=== PATIENT | female | born 1975 | race Caucasian/White ===

== ENCOUNTER 2025-02-01 19:59 | Inpatient (IN) | payer BC ==
[2025-02-01] MEDS ORDERED: MAG HYDROX/AL HYDROX/SIMETH 355 ML BOTTLE PO PRN (21:02)
[2025-02-01] MEDS ORDERED: MAGNESIUM HYDROXIDE 2,400 MG/30 ML CUP PO PRN (21:02)
[2025-02-01] MEDS ORDERED: ACETAMINOPHEN TAB 325 MG TAB PO PRN (21:02)
[2025-02-01] MEDS ORDERED: IBUPROFEN 600 MG TAB PO PRN (21:02)
[2025-02-01] MEDS ORDERED: OLANZapine 10 MG VIAL IM PRN (21:04)
[2025-02-01] MEDS ORDERED: hydrOXYzine HCL 50 MG/ML 1 ML VIAL IM PRN (21:04)
[2025-02-02] MEDS: NICOTINE 14MG/24HR PATCH TRANSDERM SCH (00:09)
[2025-02-02] MEDS: OLANZapine 5 MG TAB PO PRN (00:09)
[2025-02-02] MEDS: amLODIPine 10 MG TAB PO SCH (08:08)
[2025-02-02] MEDS: ASCORBIC ACID 500 MG TAB PO SCH (08:08)
[2025-02-02] MEDS: LOSARTAN 25 MG TAB PO SCH (08:08)
[2025-02-02] MEDS: SHAROBEL PO SCH (08:12)
--- NOTE | 2025-02-02 12:15 | P.HP ---
Psychiatric H&P - . H&P Date: 02/02/25 History & Physical: Allergies Allergy/AdvReac Type Severity Reaction Status Date / Time iodine Allergy Unknown Verified 02/01/25 20:52 Vital Signs Temp 97.7 F 02/02/25 08:09 Pulse 91 02/02/25 08:09 Resp 18 02/02/25 08:09 BP 121/82 02/02/25 08:09 Pulse Ox 96 02/02/25 08:09 FiO2 Intake & Output 02/01/25 02/02/25 02/02/25 18:59 06:59 18:59 Weight 57.1 kg 02/02/25 12:09 IDENTIFYING DATA: Patient is a 49-year-old female, employed and living with CHIEF COMPLAINT: Suicide attempt via cutting, SI HPI: Patient presented to the hospital with suicidal ideations with a plan. Per EPS, "Pt was pet/cert. Pt has racing thoughts about killing herself. Pt has SI and increased depression. Insomnia, anxiety, hypoverbal, and impaired concentration. Pt cut Left wrist with razor, requiring 5 sutures. Pt was given a TDAP. No special wound care or antibiotics ordered per Michael. Sutures can be removed within 7-10 days per HIEN Boucher. Pt is reported to be cooperative. PO Ativan given for anxiety. No restraints. Able to complete all ADLs. Covid neg, UDS neg, UA -WNL, Sodium 133, reviewed with , repeat CMP in AM. HCG neg. ETOH <10. No reported etoh or substance hx. Medical: HTN. VSS." Patient seen and evaluated on the unit and was agreeable with speaking to technical publications writer in office. She states for the past 4 months she has been having difficulties with sleep in addition to racing though ts and severe anxiety that impacts her sleep. She admits to having an affair at her job with her boss, stating that her coworkers has been harassing her and bullying her ever since, causing her to step away from her job. She does not feel as though she will return to work because of this and states that her is aware and is still willing to work on their relationship together. She admits to cutting her left wrist and immediately contacted her who brought her into the hospital. She has tried several sleep agents previously including doxepin, Remeron, Seroquel however has not felt relief in her insomnia. In addition to poor sleep she admits to poor concentration, low energy, anhedonia. She continues to express suicidal ideations with a plan to cut. Patient denies any homicidal ideations intent or plan. At this time patient denies any auditory or visual hallucinations. Patient admits to using alcohol socially, occasional cannabis and vaping daily. PAST PSYCHIATRIC HISTORY: Patient has a history of anxiety. She states she has tried doxepin, Remeron and Seroquel. Patient denies any previous psychiatric hospitalizations. Patient has seen a psychiatrist before however none recently. Patient denies any history of suicide attempts in the past. PMH: as per ER note ALLERGIES: as per EMR SUBSTANCE USE HISTORY: As per HPI FAMILY PSYCHIATRIC/SUBSTANCE USE HISTORY: Patient states her sister previously abused heroin SOCIAL HISTORY: Patient is and has no children. She completed 10th grade and is currently employed however will be leaving her job. MENTAL STATUS EXAM: General Appearance: Patient appears to be stated age is alert, directable, and attempts to cooperate. Patient appears to have poor hygiene and grooming. She has stitches on her superficial cuts on her left wrist Behavior: Patient is seated without any agitated behavior. She is tearful Speech: Patient's speech is fluent and nonpressured. Mood/Affect: Patient reports their mood is depressed, affect is congruent and constricted. Suicidality/Homicidality: Patient denies having any homicidal ideation intent or plan. She reports suicidal ideations with a plan to cut Perceptions: Patient denies any visual hallucinations and denies any auditory hallucinations Though content/process: There is no evidence of any delusional thought content and thought process is linear and logical. Memory and concentration: AOX3, grossly intact for the purposes of this session. Can spell "WORLD" backwards Judgment and insight: Poor STRENGTHS/WEAKNESSES: strength is that patient is resilient and has support. Weakness is that patient has poor judgment and is impulsive INTELLECT: Average IMPRESSIONS: Unspecified mood disorder Rule out bipolar disorder, current episode depressed versus major depressive disorder with anxious distress Nicotine dependence PLAN: -Patient is admitted under voluntary status to MHU for stabilization of psychiatric symptoms and safety. Patient has signed adult voluntary form and and is placed in patient's chart. -Medications : Start Zyprexa Zydis 10 mg at bedtime for insomnia/racing thoughts/mood stabilization, Prozac 20 mg at bedtime for depression/anxiety - Zyprexa and hydroxyzine PRN for agitation/aggression -Patient was counselled on substance abuse and desired to cut back on use -Patient was informed of the risks, benefits and side effects of the medication and patient verbally consented to taking the medications. Patient signed med consent form and was placed in chart. Patient offered and accepted patient education sheet for psychotropic medications. -Internal Medicine consult to perform medical evaluation and physical. -NRT -nicotine patch -SW on board for discharge planning. Encourage patient to participate in groups to work on coping skills.
[2025-02-02 12:27] LABS: Basophils # (A) 0.06 10*3/uL (0.00-0.10); Basophils % (A) 0.8 %; Eosinophils # (A) 0.09 10*3/uL (0.04-0.35); Eosinophils % (A) 1.2 %; HCT 40.6 % (37.2-46.3); HGB 13.7 g/dL (12.0-15.0); Lymphocytes # (A) 1.76 10*3/uL (0.90-5.00); Lymphocytes % (A) 23.6 %; MCH 34.5 pg (27.0-32.0); MCHC 33.7 g/dL (32.0-37.0); MCV 102.3 fL (80.0-97.0); Monocytes # (A) 0.87 10*3/uL (0.20-1.00); Monocytes % (A) 11.6 %; Neutrophils # (A) 4.68 10*3/uL (1.80-7.70); Neutrophils % (A) 62.7 %; Platelet Count 264 10*3/uL (140-440); RBC 3.97 10*6/uL (4.10-5.20); RDW 11.5 % (11.5-14.5); WBC 7.47 10*3/uL (4.50-10.00)
[2025-02-02] MEDS: OLANZapine ODT 10 MG TAB PO SCH (20:18)
[2025-02-02] MEDS: FLUoxetine HCL 20 MG CAP PO SCH (20:18)
[2025-02-03] MEDS: SHAROBEL PO SCH (09:54)
--- NOTE | 2025-02-03 12:20 | P.PN ---
Progress Note - Text Progress Note Date: 02/03/25 Interval history: Patient was seen wandering the hallways and was directable and agreeable to s peak with chief writer. She reports experiencing "crazy dreams" overnight however did admit to having her nicotine patch on and she was encouraged to remove this prior to bedtime. She states her will be bringing her OCP and. She reports feeling groggy today, likely related to the medication. At this time patient denies any suicidal or homicidal ideations intent or plan. Denies any auditory or visual hallucinations. Patient has been compliant with meds. Mental status exam: General Appearance: Patient appears to be stated age is alert, directable, and cooperative. Behavior: No agitated behavior. Patient is calm and directable she is less tearful today Speech: Patient's speech is fluent and nonpressured. Mood/Affect: Mood is improving mildly, affect is congruent and constricted. Suicidality/Homicidality: Patient denies having any suicidal or homicidal ideation intent or plan. Perceptions: Patient denies any auditory or visual hallucinations. Though content/process: There is no evidence of any delusional thought content and thought process is linear. Memory and concentration: AOX3, grossly intact for the purposes of this session Judgment and insight: improving mildly Assessment/Plan: Continue with current diagnosis. Patient continues to meet criteria for inpatient psychiatric admission for symptom stabilization and safety. Patient will be maintained on current psychotropic medication regimen. Monitor for medication compliance and for any psychotropic medication side effects. Will continue to monitor ongoing response to treatment. Encouraged participation in milieu.
[2025-02-03] MEDS: LOSARTAN 25 MG TAB PO SCH (20:09)
[2025-02-04] MEDS: hydrOXYzine pamoate 25 MG CAP PO PRN (14:37)
--- NOTE | 2025-02-04 18:48 | P.PN ---
Progress Note - Text Progress Note Date: 02/04/25 Interval history: Patient was seen sitting in the TV lounge with peers and was directable and ag reeable to speak with television script writer. She reports her mood is "not bad", "5/10" with 10 being the worst mood. At this time patient denies any suicidal or homicidal ideation, intent or plan. Denies any auditory or visual hallucinations. Patient has been compliant with meds and denies medication side effects. No PRNs required for agitation. Mental status exam: General Appearance: Patient appears to be stated age, tall slender adult female, dressed in casual attire, adequate hygiene Behavior: No agitated behavior. Patient is calm and directable. Speech: Patient's speech is fluent and non-pressured. Mood/Affect: Mood is improving mildly, affect is congruent and constricted. Suicidality/Homicidality: Patient denies having any suicidal or homicidal ideation intent or plan. Perceptions: Patient denies any auditory or visual hallucinations. Though content/process: There is no evidence of any delusional thought content and thought process is linear. Memory and concentration: AOX3, grossly intact for the purposes of this session Judgment and insight: improving mildly Assessment/Plan: Continue with current diagnosis. Patient continues to meet criteria for inpatient psychiatric admission for symptom stabilization and safety. Patient will be maintained on current psychotropic medication regimen. Monitor for medication compliance and for any psychotropic medication side effects. Will continue to monitor ongoing response to treatment. Encouraged participation in milieu.
--- NOTE | 2025-02-04 23:57 | P.MDCNMH ---
History of Present Illness H&P Date: 02/04/25 49 year old female with hypertension patient is here for psychosis for mental health evaluation , she had self inflicted left wrist cuts s/p sutures. she currently is feeling fine she denies any fever, chills, cough, sore throat, chest pain , trouble breathing , nausea , vomiting, abd pain , changes in urinary or bowel habits. she admits to vaping , denies illicit drugs or alcohol review of systems Pertinent positives as noted in HPI. All other systems were reviewed and are negative on exam Constitutional: No acute distress, conversant, pleasant Eyes: Anicteric sclerae, moist conjunctiva, Pupils equal round reactive to light Neck: Supple, no masses, or JVD No carotid bruits No thyromegaly Lungs: Clear to auscultation Clear to percussion Normal respiratory effort, no accessory muscle use Cardiovascular: Heart regular in rate and rhythm, No murmurs, gallops, or rubs No peripheral edema Abdominal: Soft Nontender, no guarding, rebound or rigidity Abdomen moving with respiration Normoactive bowel sounds extremities No clubbing Pedal pulses intact and symmetrical Radial pulses intact and symmetrical No calf tenderness Psychiatric: Alert and oriented to person, place and time Neuro Muscles Strength 5/5 in all 4 extremities Sensation to light touch grossly present throughout Cranial nerves II-XII grossly intact Past Medical History Past Medical History: Hypertension History of Any Multi-Drug Resistant Organisms: None Reported Past Surgical History: No Surgical Hx Reported Past Anesthesia/Blood Transfusion Reactions: No Reported Reaction Smoking Status: Vaper - Past Family History Father Additional Family Medical History / Comment(s): Paternal Hx of Heart Disease Mother Additional Family Medical History / Comment(s): Pt reports Maternal Grandmother Hx of Colon Cancer Medications and Allergies Allergies Allergy/AdvReac Type Severity Reaction Status Date / Time iodine Allergy Unknown Verified 02/01/25 20:52 Physical Exam Vitals: Vital Signs Temp Pulse Resp BP Pulse Ox 02/04/25 21:32 98.1 F 84 16 114/77 98 02/04/25 08:39 98 F 94 108/74 99 Cranial Nerve Examination - Cranial Nerves Cranial Nerve II- Optic: Intact Cranial Nerve III- Oculomotor: Intact Cranial Nerve IV- Trochlear: Intact Cranial Nerve V- Trigeminal: Intact Cranial Nerve - Abducens: Intact Cranial Nerve VII- Facial: Intact Cranial Nerve VIII- Auditory: Intact Cranial Nerve IX- Glossopharyngeal: Intact Cranial Nerve X- Vagus: Intact Cranial Nerve XI- Accessory: Intact Cranial Nerve XII- Hypoglossal: Intact Results CBC & Chem 7: 02/02/25 11:30 Assessment and Plan Assessment: hypertension , controlled resume amlodipine and losartan acute psychosis 'management per psych left wrist cuts , remove sutures after 7 days blood work limits to CBC , A1c and TSH , all unremarkable thank you for this consultation
[2025-02-05] MEDS: NICOTINE GUM (POLACRILEX) 2 MG GUM BUCCAL PRN (10:10)
[2025-02-05] MEDS: FLUoxetine HCL 20 MG CAP PO STA (12:16)
[2025-02-05] MEDS: busPIRone HCl 5 MG TAB PO SCH (12:16)
--- NOTE | 2025-02-05 13:00 | P.PN ---
Progress Note - Text Progress Note Date: 02/05/25 Interval HIstory: Patient was seen today sitting in the lounge, agreeable to speak to field underwriter in the office. Patient claims that she is still dealing with severe anxiety, claims that she feels that her mood is improving mildly however still a bit depressed. Endorsing some anhedonia. Claims that she is hesitant about taking these medications however is willing to continue on this treatment. She states that she was able to sleep fairly last night has been feeling a bit groggy in the morning. We spoke about different medication options that we can do, patient was agreeable to try BuSpar for anxiety. Has been going to some groups, fairly focused on her symptoms at this time. Claims that she has been showering, has been eating well. At this time she is denying any suicidal homicidal ideations intent or plan. Not reporting any other side effects. MENTAL STATUS EXAM: General Appearance: Patient appears to be stated age is alert, directable, and attempts to cooperate. Patient appears to have improving hygiene and grooming. She has stitches on her superficial cuts on her left wrist Behavior: Patient is seated without any agitated behavior. Attempts to cooperate. Appears anxious Speech: Patient's speech is fluent and nonpressured. Hesitant at times Mood/Affect: Patient reports their mood is depression improving, still having anxiety significantly, affect is congruent and constricted., Improving mildly Suicidality/Homicidality: Patient denies having any homicidal ideation intent or plan. Denies any suicidal ideations intent or plan Perceptions: Patient denies any visual hallucinations and denies any auditory hallucinations Though content/process: There is no evidence of any delusional thought content and thought process is linear and logical. Focused on her anxiety mainly., Improving mildly Memory and concentration: AOX3, grossly intact for the purposes of this session. Judgment and insight: Poor IMPRESSIONS: Unspecified mood disorder, rule out bipolar disorder, current episode depressed versus major depressive disorder with anxious distress Generalized anxiety disorder with panic attacks Nicotine dependence PLAN: -Patient is admitted under voluntary status to [facility]HU for stabilization of psychiatric symptoms and safety. Patient has signed adult voluntary form and and is placed in patient's chart. -Medications : Zyprexa 10 mg at bedtime for insomnia/racing thoughts/mood stabilization, increase Prozac 40 mg at bedtime for depression/anxiety. Added BuSpar 5 mg twice daily for anxiety. - Zyprexa and hydroxyzine PRN for agitation/aggression -NRT -nicotine patch -SW on board for discharge planning. Encourage patient to participate in groups to work on coping skills. Hopeful for discharge if patient is improving.
[2025-02-06] MEDS: FLUoxetine HCL 20 MG CAP PO SCH (08:16)
[2025-02-06] MEDS ORDERED: hydrOXYzine pamoate 25 MG CAP PO SCH (10:30)
--- NOTE | 2025-02-06 11:01 | P.PN ---
Progress Note - Text Progress Note Date: 02/06/25 Interval HIstory: Patient was seen today sitting in the lounge participating in group, agreeable to speak to automobile service writer in the office. Patient claims that she is still dealing with severe anxiety and also is endorsing depression. Claims that she feels that she is not improving and claims that she feels that her mind is "foggy". She claims that she is scared of being discharged and scared of what she might do to herself if she does leave the hospital. She did endorse fleeting thoughts of suicide, no specific plan. Was asking several questions about her medications and claims that she has some poor reactions to most of them. We spoke about different options. States that she had a difficult time sleeping last night only slept about for 5 hours. Was agreeable to try trazodone at nighttime and Vistaril during the day. She claims that she has been showering, has been eating well. At this time she is denying any homicidal ideations intent or plan MENTAL STATUS EXAM: General Appearance: Patient appears to be stated age is alert, directable, and attempts to cooperate. Patient appears to have improving hygiene and grooming. She has stitches on her superficial cuts on her left wrist Behavior: Patient is seated without any agitated behavior. Attempts to cooperate. Appears anxious Speech: Patient's speech is fluent and nonpressured. Mood/Affect: Patient reports their mood is depressed, still having anxiety significantly, affect is congruent and constricted., Improving mildly Suicidality/Homicidality: Patient denies having any homicidal ideation intent or plan. Admits to having fleeting passive suicidal ideations no specific intent or plan Perceptions: Patient denies any visual hallucinations and denies any auditory hallucinations Though content/process: There is no evidence of any delusional thought content and thought process is linear and logical. Focused on her anxiety mainly. Memory and concentration: AOX3, grossly intact for the purposes of this session. Judgment and insight: Poor IMPRESSIONS: Major depressive disorder, severe without psychotic features Generalized anxiety disorder with panic attacks Nicotine dependence PLAN: -Patient is admitted under voluntary status to [facility]HU for stabilization of psychiatric symptoms and safety. Patient has signed adult voluntary form and and is placed in patient's chart. -Medications : Zyprexa 10 mg at bedtime for insomnia/racing thoughts/mood stabilization, Prozac 40 mg at bedtime for depression/anxiety, will reevaluate tomorrow if this dose should be increased or antidepressant should be switched to Zoloft. d/c BuSpar due to reported intolerance, added vistaril 25 mg daily for anxiety. trazodone 50 mg qhs for mood/anxiety/insomnia - Zyprexa and hydroxyzine PRN for agitation/aggression -NRT -nicotine patch -SW on board for discharge planning. Encourage patient to participate in groups to work on coping skills. Hopeful for discharge in 2 to 3 days if patient is improving and is not endorsing suicidal thoughts.
[2025-02-06] MEDS: busPIRone HCl 5 MG TAB PO STA (11:37)
[2025-02-06] MEDS: hydrOXYzine pamoate 25 MG CAP PO SCH (11:39)
[2025-02-06] MEDS: traZODone HCL 50 MG TAB PO SCH (20:19)
[2025-02-06] MEDS ORDERED: busPIRone HCl 10 MG TAB PO SCH (21:00)
--- NOTE | 2025-02-07 12:09 | P.PN ---
Progress Note - Text Progress Note Date: 02/07/25 Interval HIstory: Patient was seen today laying in her bed agreeable to speak to contract technical writer in the o ffice. Patient claims that she is still having significant anxiety, endorsing some depression, was mildly tearful during the interview due to feeling that she is not getting discharged. She also expressed concern that she feels like a "guinea pig". she claims that she has been showering, has been eating well. Has been going to some groups, claims that she did not sleep well last night due to the bad effects from the trazodone. Claims that she was feeling "very loopy". At this time she is denying any direct suicidal or homicidal ideations intent or plan, however continues to endorse "bad thoughts" if she is to be discharged too early however did not elaborate on this, passive thoughts of not being here. Denies any auditory or visual hallucinations. MENTAL STATUS EXAM: General Appearance: Patient appears to be stated age is alert, directable, and attempts to cooperate. Patient appears to have improving hygiene and grooming. She has stitches on her superficial cuts on her left wrist Behavior: Patient is seated without any agitated behavior. Attempts to cooperate. Appears anxious Speech: Patient's speech is fluent and nonpressured. Mood/Affect: Patient reports their mood is depressed, still having anxiety, affect is congruent Suicidality/Homicidality: Patient denies having any homicidal ideation intent or plan. Admits to having fleeting passive suicidal ideations no specific intent or plan Perceptions: Patient denies any visual hallucinations and denies any auditory hallucinations Though content/process: There is no evidence of any delusional thought content and thought process is linear and logical. Focused on her anxiety mainly. Patient also focused on discharge Memory and concentration: AOX3, grossly intact for the purposes of this session. Judgment and insight: Poor, improving mildly IMPRESSIONS: Major depressive disorder, severe without psychotic features Generalized anxiety disorder with panic attacks Nicotine dependence PLAN: -Patient is admitted under voluntary status to [facility]HU for stabilization of psychiatric symptoms and safety. Patient has signed adult voluntary form and and is placed in patient's chart. -Medications : increase Zyprexa 15 mg at bedtime for insomnia/racing thoughts/mood stabilization, d/c Prozac due to patient request and replaced with zoloft 50 mg daily for depression/anxiety. vistaril 25 mg daily for anxiety. d/c trazodone due to reported intolerance - Zyprexa and hydroxyzine PRN for agitation/aggression -NRT -nicotine patch -SW on board for discharge planning. Encourage patient to participate in groups to work on coping skills. Hopeful for discharge in 2 to 3 days if patient is improving psychiatrically and is not endorsing suicidal thoughts.
[2025-02-07] MEDS: OLANZapine ODT 5 MG TAB PO SCH (20:25)
[2025-02-08] MEDS: SERTRALINE 50 MG TAB PO SCH (08:26)
--- NOTE | 2025-02-08 10:16 | P.PN ---
Progress Note - Text Progress Note Date: 02/08/25 Interval HIstory: Patient was seen today laying in her bed agreeable to speak to blurb writer in the o ffice. Patient claims that she feels that her mind is "foggy" however does claim that her anxiety and mood have been mildly improving since yesterday. Claims that she does not know how long she was sleeping last night however claims that it was disrupted due to having dreams. She claims that she has been trying to go to groups, appears to be less labile today not tearful today. Is claiming that her depression is mildly improving. She claims that she does not know how the Zoloft is working yet. Fair appetite. At this time she is denying any direct suicidal or homicidal ideations intent or plan. Denies any auditory or visual hallucinations. MENTAL STATUS EXAM: General Appearance: Patient appears to be stated age is alert, directable, and attempts to cooperate. Patient appears to have improving hygiene and grooming. She has stitches on her superficial cuts on her left wrist Behavior: Patient is seated without any agitated behavior. Attempts to cooperate. Appears anxious, improving mildly Speech: Patient's speech is fluent and nonpressured. Mood/Affect: Patient reports their mood is depressed, anxiety improving mildly, affect is congruent Suicidality/Homicidality: Patient denies having any homicidal ideation intent or plan. Denies any suicidal thoughts today. Perceptions: Patient denies any visual hallucinations and denies any auditory hallucinations Though content/process: There is no evidence of any delusional thought content and thought process is linear and logical. Less focused on her symptoms and discharge today. Memory and concentration: AOX3, grossly intact for the purposes of this session. Judgment and insight: Poor, improving mildly IMPRESSIONS: Major depressive disorder, severe without psychotic features Generalized anxiety disorder with panic attacks Nicotine dependence PLAN: -Patient is admitted under voluntary status to [facility] for stabilization of psychiatric symptoms and safety. Patient has signed adult voluntary form and and is placed in patient's chart. -Medications : Zyprexa 15 mg at bedtime for insomnia/racing thoughts/mood stabilization, zoloft 50 mg daily for depression/anxiety. vistaril 25 mg daily for anxiety. - Zyprexa and hydroxyzine PRN for agitation/aggression -NRT -nicotine patch -SW on board for discharge planning. Encourage patient to participate in groups to work on coping skills. Hopeful for discharge in 2 to 3 days if patient is improving psychiatrically and is not endorsing suicidal thoughts.
--- NOTE | 2025-02-09 12:32 | P.PN ---
Progress Note - Text Progress Note Date: 02/09/25 Interval HIstory: Patient was seen today sitting in the lounge agreeable to speak to chief writer in the office. Patient claims that she feels a bit better today, less focused on anxiety, appears to be more future oriented. She claims that she is still feeling a bit "foggy" in the morning is agreeable to try her Zoloft at nighttime. Claims that she has been trying to go to groups participate as much as she can. She continues to be fairly focused on discharge. States that she slept on and off last night. Fair appetite. At this time she is denying any direct suicidal or homicidal ideations intent or plan. Denies any auditory or visual hallucinations. MENTAL STATUS EXAM: General Appearance: Patient appears to be stated age is alert, directable, and attempts to cooperate. Patient appears to have improving hygiene and grooming. She has stitches on her superficial cuts on her left wrist Behavior: Patient is seated without any agitated behavior. Attempts to cooperate. Speech: Patient's speech is fluent and nonpressured. Mood/Affect: Patient reports their mood is improving mildly, affect is congruent and improving mildly Suicidality/Homicidality: Patient denies having any homicidal ideation intent or plan. Denies any suicidal thoughts today. Perceptions: Patient denies any visual hallucinations and denies any auditory hallucinations Though content/process: There is no evidence of any delusional thought content and thought process is linear and logical. Less focused on her symptoms and discharge today. Memory and concentration: AOX3, grossly intact for the purposes of this session. Judgment and insight: improving mildly IMPRESSIONS: Major depressive disorder, severe without psychotic features Generalized anxiety disorder with panic attacks Nicotine dependence PLAN: -Patient is admitted under voluntary status to [facility]HU for stabilization of psychiatric symptoms and safety. Patient has signed adult voluntary form and and is placed in patient's chart. -Medications : Zyprexa 15 mg at bedtime for insomnia/racing thoughts/mood stabilization, change to nightly dosing zoloft 50 mg daily for depression/anxiety. vistaril 25 mg daily for anxiety. - Zyprexa and hydroxyzine PRN for agitation/aggression -NRT -nicotine patch -SW on board for discharge planning. Encourage patient to participate in groups to work on coping skills. Hopeful for discharge Tuesday if patient is improving psychiatrically and is not endorsing suicidal thoughts.
[2025-02-09] MEDS: SERTRALINE 50 MG TAB PO SCH (20:51)
--- NOTE | 2025-02-10 13:57 | P.PN ---
Progress Note - Text Progress Note Date: 02/10/25 Interval HIstory: Patient was seen today laying in her bed agreeable to speak to continuity writer. She ap pears to be [place] today in her affect, claims that her anxiety and mood have been improving. Continues to be fairly future oriented. Has been taking her medications states that she feels less foggy today. Has been eating well. Claims that she slept fairly last night. She continues to be fairly focused on discharge. States that she slept on and off last night. Fair appetite. At this time she is denying any direct suicidal or homicidal ideations intent or plan. Denies any auditory or visual hallucinations. MENTAL STATUS EXAM: General Appearance: Patient appears to be stated age is alert, directable, and attempts to cooperate. Patient appears to have improving hygiene and grooming. She has stitches on her superficial cuts on her left wrist Behavior: Patient is seated without any agitated behavior. Attempts to cooperate. Speech: Patient's speech is fluent and nonpressured. Mood/Affect: Patient reports their mood is improving mildly, affect is congruent and improving mildly Suicidality/Homicidality: Patient denies having any homicidal ideation intent or plan. Denies any suicidal thoughts today. Perceptions: Patient denies any visual hallucinations and denies any auditory hallucinations Though content/process: There is no evidence of any delusional thought content and thought process is linear and logical. Less focused on her symptoms and discharge today. Improving mildly Memory and concentration: AOX3, grossly intact for the purposes of this session. Judgment and insight: improving mildly IMPRESSIONS: Major depressive disorder, severe without psychotic features Generalized anxiety disorder with panic attacks Nicotine dependence PLAN: -Patient is admitted under voluntary status to MHU for stabilization of psychiatric symptoms and safety. Patient has signed adult voluntary form and and is placed in patient's chart. -Medications : Zyprexa 15 mg at bedtime for insomnia/racing thoughts/mood stabilization, zoloft 50 mg daily for depression/anxiety. vistaril 25 mg daily for anxiety. - Zyprexa and hydroxyzine PRN for agitation/aggression -NRT -nicotine patch -SW on board for discharge planning. Encourage patient to participate in groups to work on coping skills. Hopeful for discharge Tuesday if patient is improving psychiatrically
[2025-02-10 23:20] VITALS: TEMP 97.7
[2025-02-11 09:30] VITALS: BP 120/75; PULSE 81; RESP 16
--- NOTE | 2025-02-11 10:29 | P.DS ---
Providers Date of admission: 02/01/25 23:22 Expected date of discharge: 02/11/25 Attending physician: Dexter Astudillo MD Consults: 02/01/25 21:02 Consult Physician Routine Consulting Provider: [facility] Consult Reason/Comments: H&P Do you want consulting provider notified?: Yes Primary care physician: Stated None - Discharge Diagnosis(es) (1) Major depressive disorder without psychotic features Current Visit: Yes Status: Acute Priority: High (2) Generalized anxiety disorder with panic attacks Current Visit: Yes Status: Acute Priority: High (3) Nicotine dependence Current Visit: Yes Status: Acute Priority: Low Hospital Course: Admission HPI: Admission note was completed by technical report writer "patient is a 49-year-old female, employed and living with . Complaint is left kneePatient presented to the hospital with suicidal ideations with a plan. Per EPS, "Pt was pet/cert. Pt has racing thoughts about killing herself. Pt has SI and increased depression. Insomnia, anxiety, hypoverbal, and impaired concentration. Pt cut Left wrist with razor, requiring 5 sutures. Pt was given a TDAP. No special wound care or antibiotics ordered per Michael. Sutures can be removed within 7-10 days per HIEN Boucher. Pt is reported to be cooperative. PO Ativan given for anxiety. No restraints. Able to complete all ADLs. Covid neg, UDS neg, UA -WNL, Sodium 133, reviewed with , repeat CMP in AM. HCG neg. ETOH <10. No reported etoh or substance hx. Medical: HTN. VSS." Patient seen and evaluated on the unit and was agreeable with speaking to technical report writer in office. She states for the past 4 months she has been having difficulties with sleep in addition to racing though ts and severe anxiety that impacts her sleep. She admits to having an affair at her job with her boss, stating that her coworkers has been harassing her and bullying her ever since, causing her to step away from her job. She does not feel as though she will return to work because of this and states that her is aware and is still willing to work on their relationship together. She admits to cutting her left wrist and immediately contacted her who brought her into the hospital. She has tried several sleep agents previously including doxepin, Remeron, Seroquel however has not felt relief in her insomnia. In addition to poor sleep she admits to poor concentration, low energy, anhedonia. She continues to express suicidal ideations with a plan to cut. Patient denies any homicidal ideations intent or plan. At this time patient denies any auditory or visual hallucinations. Patient admits to using alcohol socially, occasional cannabis and vaping daily." Hospital course: Upon admission to the unit patient was directable and agreeable to commence treatment and signed adult voluntary form. Patient was initially depressed anxious however with time and treatment patient got along well with other patients on the unit and followed unit protocol. Patient was compliant with the medications and denied any side effects throughout hospital course. Patient was started on Zyprexa increased to dose of 15 mg nightly for insomnia/racing thoughts/mood stabilization, Zoloft 50 mg nightly for mood/anxiety, Vistaril as needed for anxiety,. Patient spoke of her stressors and engaged in therapy both group/activity therapy. Patient was also seen by medical team for history and physical exam. Throughout the course of the hospitalization patient gradually improved with regards to mood, anxiety, panic attacks, sleep and became more future oriented with improved insight and judgment. On the day of discharge patient denied any suicidal or homicidal ideations intent or plan denied any auditory or visual hallucinations. Patient endorsed wanting to live for their health and family. The patient denied any access to guns or weapons. Patient denied any paranoia and did not endorse any delusions. Patient does have a significant history of substance abuse and was counseled on abstaining from all substances including alcohol and marijuana. Patient was also counseled on the medications and need for regular compliance and was encouraged to follow-up with their outpatient appointment for mental health and also for primary care. Prior to discharge a family meeting will be arranged by social services designee to answer any questions and ensure safety upon discharge incuding making sure that guns/weapons are either removed from the home or locked away. Mental status exam: General Appearance: Patient appears to be thin, stated age is alert, pleasant, and cooperative. Patient is in no acute distress and has improved hygiene and grooming Behavior: Patient is calmly seated without any agitated behavior. Speech: Patient's speech is fluent and nonpressured. Mood/Affect: Patient reports their mood is "better", affect is congruent and euthymic. Suicidality/Homicidality: Patient denies having any suicidal or homicidal ideation intent or plan. Perceptions: Patient denies any auditory or visual hallucinations. Though content/process: There is no evidence of any delusional thought content and thought process is linear and goal-directed. More future oriented Memory and concentration: AOX3, grossly intact for the purposes of this session. Can spell "WORLD" backwards correctly. Judgment and insight: improved with guarded prognosis Impression: Major depressive disorder severe without psychotic features Generalized anxiety disorder with panic attacks Nicotine dependence Plan: -Continue with discharge today as patient has improved and stabilized psychiatrically and is not currently an imminent threat to themself and/or others. -Continue medications: Zyprexa 15 mg nightly for mood stabilization/severe anxiety/sleep, Vistaril 25 mg twice daily as needed for anxiety, Zoloft 50 mg nightly for mood/anxiety. Biology Specialist spoke with patient about the risks benefits and side effects of the medications including metabolic risk and EPS/neurological symptoms. Also discussed possibility of increase in suicidal thoughts from the SSRI which is the standard blackbox warning and to continue to monitor these and follow-up with her outpatient psychiatrist. -Patient was counseled on the need for medication compliance and appropriate follow-up at mental health and also primary care for medical issues. Patient verbalized understanding and agreed. -Social work to arrange for and conduct family meeting to ensure safety upon discharge and answer any questions/concerns. also to ensure safe home environment that guns/weapons are either removed from the home or locked away. Social work also to arrange for patients follow up appointments for psychiatric care along with follow up with primary care provider. -Patient counseled on abstaining from recreational drugs and marijuana and alcohol. Was informed/educated on the adverse effects on their physical and mental health. Patient verbally agreed and understood. -Patient was instructed to return to the hospital or seek immediate medical care if their psychiatric or medical symptoms do worsen or reoccur. Allergies Allergy/AdvReac Type Severity Reaction Status Date / Time iodine Allergy Unknown Verified 02/01/25 20:52 Laboratory Results WBC 7.47 10*3/uL (4.50-10.00) 02/02/25 11:30 RBC 3.97 10*6/uL (4.10-5.20) L 02/02/25 11:30 Hgb 13.7 g/dL (12.0-15.0) 02/02/25 11: Hct 40.6 % (37.2-46.3) 02/02/25 11: MCV 102.3 fL (80.0-97.0) H 02/02/25 11:30 MCH 34.5 pg (27.0-32.0) H 02/02/25 11:30 MCHC 33.7 g/dL (32.0-37.0) 02/02/25 11:30 Plt Count 264 10*3/uL (140-440) 02/02/25 11: MPV 10.0 fL (9.5-12.2) 02/02/25 11: Immature Gran % (Auto) 0.1 % 02/02/25 11: Neutrophils % 62.7 % 02/02/25 11: Lymphocytes % 23.6 % 02/02/25 11: Monocytes % 11.6 % 02/02/25 11: Eosinophils % 1.2 % 02/02/25 11: Basophils % 0.8 % 02/02/25 11:30 Immature Gran # 0.01 10*3/uL (0.00-0.04) 02/02/25 11: Neutrophils # 4.68 10*3/uL (1.80-7.70) 02/02/25 11: Lymphocytes # 1.76 10*3/uL (0.90-5.00) 02/02/25 11: Monocytes # 0.87 10*3/uL (0.20-1.00) 02/02/25 11: Eosinophils # 0.09 10*3/uL (0.04-0.35) 02/02/25 11:30 Basophils # 0.06 10*3/uL (0.00-0.10) 02/02/25 11:[address] Glu mg/dL 100 mg/dL 02/02/25 11: Hemoglobin A1c 5.1 % (<=6.0) 02/02/25 11:30 TSH 1.850 mIU/L (0.465-4.680) 02/02/25 11:30 Vital Signs Temp 97.7 F 02/11/25 09:00 Pulse 81 02/11/25 09:00 Resp 16 02/11/25 09:00 BP 120/75 02/11/25 09:00 Pulse Ox 98 02/11/25 09:00 FiO2 Intake & Output 02/10/25 02/11/25 02/11/25 18:59 06:59 18:59 Weight 60.1 kg Patient Condition at Discharge: Stable Plan - Discharge Summary Discharge Rx Participant: No New Discharge Prescriptions: New Losartan [Cozaar] 25 mg PO HS 30 Days #30 tab Ascorbic Acid [Vitamin C] 500 mg PO DAILY 30 Days #30 tab OLANZapine [ZyPREXA] 15 mg PO HS 30 Days #30 tablet Ibuprofen [Motrin] 600 mg PO Q6HR PRN tab PRN Reason: Moderate Pain (Scale 4 To 6) Nicotine Gum (Polacrilex) [Nicorette] 2 mg BUCCAL Q4HR PRN 30 Days #180 pieceofgum PRN Reason: Nicotine Cravings Acetaminophen Tab [Tylenol] 650 mg PO Q4HR PRN tab PRN Reason: Mild Pain (Scale 1 To 3) hydrOXYzine pamoate [Vistaril] 25 mg PO BID PRN 30 Days #60 cap PRN Reason: Anxiety Sertraline [Zoloft] 50 mg PO HS 30 Days #30 tab Discharge Medication List Acetaminophen Tab [Tylenol] 650 mg PO Q4HR PRN tab 02/11/25 [Rx] Ascorbic Acid [Vitamin C] 500 mg PO DAILY 30 Days #30 tab 02/11/25 [Rx] Ibuprofen [Motrin] 600 mg PO Q6HR PRN tab 02/11/25 [Rx] Losartan [Cozaar] 25 mg PO HS 30 Days #30 tab 02/11/25 [Rx] Nicotine Gum (Polacrilex) [Nicorette] 2 mg BUCCAL Q4HR PRN 30 Days #180 pieceofgum 02/11/25 [Rx] OLANZapine [ZyPREXA] 15 mg PO HS 30 Days #30 tablet 02/11/25 [Rx] Sertraline [Zoloft] 50 mg PO HS 30 Days #30 tab 02/11/25 [Rx] hydrOXYzine pamoate [Vistaril] 25 mg PO BID PRN 30 Days #60 cap 02/11/25 [Rx] Follow up Appointment(s)/Referral(s): Group, [facility] [Other] - 02/13/25 11:00 am (Laida 02/13 @ 11:00am ) [facility] [Other] - 1 Week Patient Instructions/Handouts: Depression (DC) Activity/Diet/Wound Care/Special Instructions: Avoid the use of street drugs and alcohol. Take all medications as prescribed. When you are in need of refills on your medications, please contact your medical provider and/or outpatient psychiatrist/provider to have this done. Please go to your scheduled outpatient appointment for aftercare treatment. If symptoms return or become worse, call the crisis line at and/or go to the nearest emergency room for evaluation. National Suicide Hotline [address] [facility] confidentiality statement: "The information contained in this communication, including attachments, is confidential, may be privileged, and is intended only for the use of the named recipient(s). Unauthorized use, disclo sure, forwarding or copying is strictly prohibited and may be unlawful. If you have received this communication in error, please notify me IMMEDIATELY at the phone number or pager listed above. Discharge Disposition: HOME SELF-CARE
== END 2025-02-11 13:47 | disposition home or self-care (01) | DRG 885 ==
LOC: 3MHU 23:22
PROVIDERS: ADMIT Psychiatry & Neurology Psychiatry; ATTEND Psychiatry & Neurology Psychiatry
DX: F32.2 Major depressive disorder, single episode, severe without psychotic features (principal); R45.851 Suicidal ideations; I10 Essential (primary) hypertension; F17.290 Nicotine dependence, other tobacco product, uncomplicated; F41.1 Generalized anxiety disorder; F41.0 Panic disorder [episodic paroxysmal anxiety]; Z55.5 Less than a high school diploma; G47.00 Insomnia, unspecified; S61.512D Laceration without foreign body of left wrist, subsequent encounter; X78.8XXD Intentional self-harm by other sharp object, subsequent encounter; Z88.8 Allergy status to other drugs, medicaments and biological substances
CPT/HCPCS: 83036; 84443; 85025